=== PATIENT | male | born 1975 | race Hispanic/Latino ===

== ENCOUNTER 2021-04-16 18:49 | Emergency (ER) | payer OTHER ==
[~2021-04-16] VITALS: Ht 162.6 cm; Wt 72.6 kg
[2021-04-16 19:35] VITALS: BP 134/71
[2021-04-16] MEDS ORDERED: ACET-66 PO (19:37)
[2021-04-16] MEDS ORDERED: FLUT16H NASAL (19:37)
[2021-04-16] MEDS ORDERED: LORA10TA7 PO (19:37)
[2021-04-16] MEDS ORDERED: ACETAMINOPHEN 500 MG TABLET ONE (19:49)
[2021-04-16] MEDS ORDERED: ACETAMINOPHEN 500 MG TABLET PO ONE (20:00)
== END 2021-04-16 19:58 | disposition home or self-care (01) ==
LOC: EDH 18:49
DX: U07.1 COVID-19 (principal)
CPT/HCPCS: 87635; 87804 ×2; 99283; C9803

== ENCOUNTER 2023-10-31 08:36 | Emergency (ER) | payer OTHER ==
[~2023-10-31] VITALS: Ht 162.6 cm; Wt 68.0 kg
[~2023-10-31 08:36] MED LIST: ACET-66 PO; FLUT16H NASAL; LORA10TA7 PO
[2023-10-31 09:23] LABS: INFLUENZA TYPE A Negative For Type A (NEGATIVE); INFLUENZA TYPE B Negative For Type B (NEGATIVE); SARS-CoV-2, RNA, NAAT POSITIVE SARS CoV-2 (NEGATIVE)
[2023-10-31 11:33] VITALS: BP 138/83; PULSE 83; RESP 20; O2SAT 98
== END 2023-10-31 11:36 | disposition home or self-care (01) ==
LOC: EDH 08:36
DX: U07.1 COVID-19 (principal); Z79.899 Other long term (current) drug therapy
CPT/HCPCS: 87635; 87804